=== PATIENT | female | born 1965 | race Caucasian/White ===

== ENCOUNTER → 2017-02-22 | Outpatient (CLI) | payer BC ==
[~2017-02-22] MED LIST: ESTRADIOL TD; POTA1080 PO
--- NOTE | 2017-02-22 10:48 | DIAGNOSTIC IMAGING REPORT ---
LEFT KNEE 2 VIEWS HISTORY: M25.562 Left knee [id number] COMPARISON: None. FINDINGS: There is no fracture or dislocation. Soft tissues are unremarkable. No radiopaque foreign bodies. No knee effusion. Tiny marginal osteophytes at the patella. Cartilage spaces are maintained for age. IMPRESSION: No fractures. Electronically signed by: Reagan Del Rosario M.D. 02/22/2017 10:47 AM Dictated Date/Time: 02/22/2017 10:44 AM
== END | disposition home or self-care (01) ==
LOC: C.RADBC 10:18
PROVIDERS: ATTEND Family Medicine
DX: M25.562 Pain in left knee (principal)

== ENCOUNTER → 2017-04-27 | Outpatient (CLI) | payer BC ==
--- NOTE | 2017-04-27 12:17 | MAMMOGRAPHY REPORT ---
BILATERAL DIGITAL SCREENING MAMMOGRAM TOMOSYNTHESIS WITH CAD: 04/27/2017 CLINICAL HISTORY: Routine screening examination. TECHNIQUE: Breast tomosynthesis in addition to standard 2D mammography was performed. Current study was also evaluated with a Computer Aided Detection (CAD) system. COMPARISON: Comparison is made to exams dated: 04/25/2016 mammogram, 04/22/2015 mammogram, 04/20/2014 m ammogram, 04/14/2013 mammogram, 04/11/2012 mammogram, and 01/23/2011 mammogram - [facility] ter. BREAST COMPOSITION: There are scattered areas of fibroglandular density in both breasts. FINDINGS: The parenchymal pattern is unchanged. No developing mass, architectural distortion or clus ter of suspicious microcalcifications is seen in either breast. IMPRESSION: ACR BI-RADS CATEGORY 2: BENIGN There is no mammographic evidence of malignancy. A 1 year screening mammogram is recommended. The pa tient will receive written notification of the results. Approximately 10% of breast cancers are not detected with mammography. A negative mammographic report should not delay biopsy if a clinically suggestive mass is present. Aimee Vidal M.D. ay/:04/27/2017 08:31:49 Stacker Tender: Anneliese KOWALSKI(Vincent)(M), [facility] letter sent: Normal 1/2 BI-RADS Code: ACR BI-RADS Category 2: Benign
== END | disposition home or self-care (01) ==
LOC: C.MAMM 07:35
PROVIDERS: ATTEND Obstetrics & Gynecology
DX: Z12.31 Encounter for screening mammogram for malignant neoplasm of breast (principal)

== ENCOUNTER → 2017-08-29 | Outpatient (CLI) | payer BC ==
--- NOTE | 2017-08-29 07:05 | DIAGNOSTIC IMAGING REPORT ---
ABD/PELVIS NO IV OR ORAL CONT CT DOSE: 1877.51 mGy.cm HISTORY: Flank pain N20.9 TECHNIQUE: Multiaxial CT images of the abdomen and pelvis were performed without contrast. A dose lowering technique was utilized adhering to the principles of ALARA. COMPARISON STUDY: 11/20/2015 FINDINGS: Lung bases are clear. Mild fatty infiltration of liver. Interval cholecystectomy. Kidneys are considered negative for mass or hydronephrosis. The obstructing process of the left ureter on the prior study has resolved. No significant renal calcifications currently. Bowel pattern is nonobstructive. Stable postoperative changes involving the low lumbar spine consistent with laminectomy and fusion. Survey evaluation of the osseous structures shows no acute process. IMPRESSION: 1. Operative changes consistent with a prior cholecystectomy and low lumbar laminectomy. 2. Study is otherwise negative. 3. No evidence for nephrocalcinosis or obstructing urinary tract change. The above report was generated using voice recognition software. It may contain grammatical, syntax or spelling errors. Electronically signed by: Daniele Pereira M.D. 08/29/2017 7:03 AM Dictated Date/Time: 08/29/2017 6:55 AM
== END | disposition home or self-care (01) ==
LOC: C.CTS 06:42
PROVIDERS: ATTEND Urology
DX: N20.9 Urinary calculus, unspecified (principal)

== ENCOUNTER → 2017-10-26 | Outpatient (CLI) | payer BC ==
[2017-10-26 12:42] LABS: BASO % 0.4 %; BASO ABS # 0.04 K/uL (0-0.2); COMPLETE YES; EOS ABS # 0.09 K/uL (0-0.5); HEMATOCRIT 43.2 % (37-47); IG# 0.03 K/uL (0.00-0.02); IG% 0.3 %; LYMPH % 26.9 %; LYMPH ABS # 2.45 K/uL (1.2-3.4); MEAN CELL VOLUME 90.9 fL (80-100); MEAN CORPUSCULAR HEMOGLOBIN 29.5 pg (25-34); MEAN CORPUSCULAR HGB CONC 32.4 g/dl (32-36); MEAN PLATELET VOLUME 10.2 fL (7.4-10.4); MONO % 8.1 %; MONO ABS # 0.74 K/uL (0.11-0.59); NEUT % 63.3 %; NEUT ABS # 5.76 K/uL (1.4-6.5); PLATELET COUNT 269 K/uL (130-400); RED BLOOD COUNT 4.75 M/uL (4.2-5.4); RED CELL DISTRIBUTION WIDTH CV 12.7 % (11.5-14.5); RED CELL DISTRIBUTION WIDTH SD 42.3 fL (36.4-46.3); WHITE BLOOD COUNT 9.11 K/uL (4.8-10.8)
[2017-10-26 13:19] LABS: HEMOGLOBIN A1C 6.7 % (4.5-5.6)
[2017-10-26 13:19] LABS: ESTIMATED AVERAGE GLUCOSE 146 mg/dl; HA1C FLAG Normal (Normal)
[2017-10-26 14:14] LABS: ALBUMIN 3.5 gm/dl (3.4-5.0); BLOOD UREA NITROGEN 14 mg/dl (7-18); BUN/CREATININE RATIO 17.9 (10-20); CALCIUM 9.2 mg/dl (8.5-10.1); CARBON DIOXIDE 27 mmol/L (21-32); CHLORIDE 103 mmol/L (98-107); CREATININE 0.76 mg/dl (0.60-1.20); EstGFR CKD-E AfrAm 105.3; EstGFR CKD-E NON AfrAm 90.8; POTASSIUM 4.2 mmol/L (3.5-5.1); SODIUM 136 mmol/L (136-145)
[2017-10-26 14:14] LABS: GLUCOSE 143 mg/dl (70-99)
[2017-10-26 14:25] LABS: ALB/GLOB RATIO 0.8 (0.9-2); ALKALINE PHOSPHATASE 71 U/L (45-117); ALT/SGPT 31 U/L (12-78); AST/SGOT 25 U/L (15-37); CHOLESTEROL 168 mg/dl (0-200); CHOLESTEROL/HDL RATIO 3.4; HDL CHOLESTEROL 50 mg/dl; LDL CHOLESTEROL CALCULATED 103 mg/dl; TRIGLYCERIDES 74 mg/dl (0-150); VERY LOW DENSITY LIPOPROT CALC 15 mg/dl
== END | disposition home or self-care (01) ==
LOC: C.LABPVFM 07:40
DX: G43.909 Migraine, unspecified, not intractable, without status migrainosus (principal); G47.33 Obstructive sleep apnea (adult) (pediatric); K76.0 Fatty (change of) liver, not elsewhere classified; E78.5 Hyperlipidemia, unspecified; Z68.42 Body mass index [BMI] 45.0-49.9, adult; R73.03 Prediabetes

== ENCOUNTER → 2018-05-01 | Outpatient (CLI) | payer BC ==
--- NOTE | 2018-05-02 07:56 | MAMMOGRAPHY REPORT ---
BILATERAL DIGITAL SCREENING MAMMOGRAM TOMOSYNTHESIS WITH CAD: 05/01/2018 CLINICAL HISTORY: Routine screening. Patient has no complaints. TECHNIQUE: The study was acquired using full field digital technology and interpreted from soft copy. Breast tomosynthesis in addition to standard 2D mammography was performed. Current study was also ev aluated with a Computer Aided Detection (CAD) system. COMPARISON: Comparison is made to exams dated: 04/27/2017 mammogram, 04/25/2016 mammogram, 11/25/2015 m ammogram, 04/22/2015 mammogram, 04/20/2014 mammogram, and 04/14/2013 mammogram - [facility] nter. BREAST COMPOSITION: There are scattered areas of fibroglandular density in both breasts. FINDINGS: The parenchymal pattern is unchanged. No developing mass, architectural distortion or cluster of susp icious microcalcifications is seen in either breast. IMPRESSION: ACR BI-RADS CATEGORY 2: BENIGN There is no mammographic evidence of malignancy. A 1 year screening mammogram is recommended.( 019) The patient will receive written notification of the results. Some breast cancers are not detected with mammography. A negative mammographic report should not bailee y biopsy if a clinically suggestive mass is present. Aimee Vidal M.D. ay/:05/01/2018 09:06:57 Nail Tech: RT Andrews(Vincent)(M), [facility] letter sent: Normal 1/2 BI-RADS Code: ACR BI-RADS Category 2: Benign
== END | disposition home or self-care (01) ==
LOC: C.MAMM 07:58
PROVIDERS: ATTEND Obstetrics & Gynecology
DX: Z12.31 Encounter for screening mammogram for malignant neoplasm of breast (principal)

== ENCOUNTER 2024-10-30 18:57 | Observation (INO) ==
--- NOTE | 2024-10-30 19:13 | Emergency Department Note ---
ED Visit Note This patient was briefly evaluated while in triage. An abbreviated physical exam was performed. This patient is a 59-year-old female who presents to the ED for right lower quadrant pain. Patient states that she has a history of kidney stones and this feels similar. CONSTITUTIONAL: Healthy and well nourished. Alert and oriented X 3. HEENT: Normocephalic, atraumatic. Pupils equal, round and reactive. RESPIRATORY: Clear to auscultation bilaterally with no wheezing, crackles, rhonchi or stridor. CARDIOVASCULAR: Regular rate and rhythm with no murmurs, rubs or gallops. GASTROINTESTINAL: Bowel sounds present in all quadrants. MUSCULOSKELETAL: Full range of motion of all joints without discomfort. Ambulated into triage with steady and upright gait. PSYCHIATRIC: Positive affect. Initial orders for labs and / or imaging were placed and patient was placed in the waiting area until a bed is available. Please see further documentation for the full ED course. .
[2024-10-30] MEDS: ONDANSETRON INJ 2 MG/ML 2 ML VIAL IV STA ×2 (19:29→20:40)
[2024-10-30] MEDS: KETOROLAC TROMETHAMINE 15 MG/ML VIAL IV STA (19:29)
[2024-10-30 20:00] LABS: Hematocrit (blood only) 40.1 % (37.0-47.0); Hemoglobin 13.3 g/dl (12.0-16.0); Mean Corpuscular Hemoglobin 28.4 pg (25.0-34.0); Mean Corpuscular Hgb Conc 33.2 g/dL (32.0-36.0); Mean Corpuscular Volume 85.5 fL (80.0-100.0); Mean Platelet Volume 9.1 fL (9.4-12.4); Platelet Count 456 K/uL (130-400); RDW Standard Deviation 37.1 fL (36.4-46.3); Red Blood Count 4.69 M/uL (4.20-5.40); White Blood Count 12.66 K/ul (4.8-10.8)
[2024-10-30 20:18] LABS: Basophils # (auto) 0.08 K/uL (0.00-0.20); Basophils % (auto) 0.6 %; Eosinophils # (auto) 0.06 K/uL (0.00-0.50); Eosinophils % (auto) 0.5 %; Immature Granulocytes # (auto) 0.06 K/uL (0.01-0.20); Immature Granulocytes % (auto) 0.5 %; Lymphocytes % (auto) 50.6 %; Monocytes # (auto) 0.71 K/uL (0.11-0.59); Monocytes % (auto) 5.6 %; Neutrophils # (auto) 5.35 K/uL (1.40-6.50); Neutrophils % (auto) 42.2 %
[2024-10-30 20:20] LABS: BUN Creatinine Ratio 16.7 (10-20); Bilirubin,Total 0.4 mg/dl (0.2-1.0); Creatinine Clr Calc Pharmacy 87.2 ml/min; Potassium 3.6 mmol/L (3.5-5.1)
[2024-10-30] MEDS: MoRPHine SULFATE 4 MG/ML 1 ML CARP\\VIAL IV STA (20:31)
[2024-10-30 20:32] LABS: Appearance Urine Cloudy (Clear); Bacteria Urine Automated None Seen (None Seen); Bilirubin Urine Negative (Negative); Blood Urine 3+ (Negative); Cast Urine Automated 0-2 /lpf (0-2); Color Urine Yellow; Glucose Urine UA Negative (Negative); Ketones Urine Negative (Negative); Leukocyte Esterase Urine 1+ (Negative); Nitrite Urine Negative (Negative); Protein Urine 1+ (Negative); RBC Urine Automated >20 /hpf (0-2); Specific Gravity Urine 1.022 (1.000-1.030); Urobilinogen Urine Negative (Negative)
--- NOTE | 2024-10-30 20:40 | Emergency Department Note ---
ED Provider Note History of Present Illness Chief Complaint: Kidney Stone Stated Complaint: KIDNEY STONE Time Seen by Provider: 10/30/24 19:40 Source: patient Mode of arrival: ambulatory Limitations: no limitations Patient is a 59-year-old female who presents to the ED for right lower quadrant pain. Patient notes that the pain is severe and also notes some associated nausea. Patient states that she has a history of kidney stones and this feels similar. Home Medications Medication Instructions Recorded Confirmed Type lancets 33 gauge (OneTouch Delica #100 ea 08/03/22 10/30/24 Rx Lancets) OneTouch Verio Reflect Meter #1 ea 03/15/23 10/30/24 Rx (blood-glucose meter) Ozempic 2 mg/dose (8 mg/3 mL) 2 mg (0.75 mL) subcut Q7D #3 mL 03/20/24 10/30/24 Rx subcutaneous pen injector (semaglutide) OneTouch Verio test strips (blood #100 ea 06/18/24 10/30/24 Rx sugar diagnostic) lancets 33 gauge (OneTouch Delica #100 ea 06/18/24 10/30/24 Rx Plus Lancet) topiramate 25 mg tablet 25 mg PO HS #90 tabs 06/18/24 10/30/24 Rx amoxicillin 875 mg-potassium 1 tab PO BID 10 days #20 tabs 10/27/24 10/30/24 Rx clavulanate 125 mg tablet rosuvastatin 5 mg tablet (Crestor) 5 mg PO 4XWK 10/27/24 10/30/24 History Allergies Allergy/AdvReac Type Severity Reaction Status Date / Time codeine Allergy Unknown ITCHING Verified 10/27/24 11:33 [id number] Antimigraine AdvReac Unknown Major Verified 10/27/24 11:33 Agents panic attack Past Med/Surg History Problem List (Updated 10/31/24 @ 01:06 by LAN Knott) FH: colon cancer Hydronephrosis with obstructing calculus (Acute) Vitamin D deficiency Obesity (BMI 30-39.9) Sleep apnea CPAP Impingement syndrome, shoulder, left Uric acid urolithiasis (Chronic) Type 2 diabetes mellitus (Chronic) Multiple nevi (Chronic) Hepatic steatosis (Chronic) Headache, migraine (Chronic) Dyslipidemia (Chronic) Borderline high blood pressure (Chronic) Medical History Family history of premature CAD Peripheral edema Slow to wake up after anesthesia Obesity, morbid, BMI 40.0-49.9 BMI has decreased below 40 History of kidney stones Surgical History S/P left rotator cuff repair S/P left rotator cuff repair History of lumbar fusion (10/1999) L4-5, [facility] History of colonoscopy History of cholecystectomy History of hysterectomy History of tubal ligation Family History Mother Diabetes Hypertension Cardiac disorder Myocardial infarction Father Diabetes Hypertension Cardiac disorder Myocardial infarction Son Kidney stones Other Heart disease Kidney disease Denies family history of Ovarian cancer Prostate cancer Breast cancer Lung cancer Colorectal cancer Stroke Social History Smoking Status: Never smoker Tobacco Type: Cigarettes Age Started Using Tobacco: 16; Age Quit Using Tobacco: 34; packs per day: 1.5; Cigarettes Per Day: 30; Second Hand Exposure: No; Do You Dip or Chew Tobacco: No; Hx Alcohol Use: Yes Alcohol type: wine Alcohol Intake Frequency: 2-4 x/Month Hx Substance Use: No Preferred Language: Turkmen Communication Ability: Effective Visual Impairment: Limited Hearing Ability: Normal Bump Grader Operator Required: No Beliefs That Will Affect Care: None marital status: Current Living Situation: Spouse and Family Current Living Situation Comment: DAUGHTER AND GRANDAUGHTER current occupational status: employed current occupation: [employer] How many Children do You have: 3 Feels Safe at Home: Yes Childhood Exposure to Second-Hand Smoke: No Diet: regular caffeine: No Dental Care, Regularly: No Physical Activity Frequency: 1-2 Times per Week Seatbelt Use: always Sunscreen Use: Yes Assistive Devices: CPAP, Denture - Upper, Denture - Lower and Glasses Physical Exam Vital Signs Vital Signs - 24 hr 10/30/24 19:12 10/30/24 20:36 10/30/24 20:38 Temperature 36.1 C L Temperature Source Temporal Artery Scan Pulse Rate 79 82 Pulse Rate [Apical] 71 Respiratory Rate 20 18 Respiratory Effort / Characteristics Non-Labored Spontaneous Respiratory Depth Normal Blood Pressure 154/102 H Blood Pressure [Left Arm] 117/80 Blood Pressure Mean 119 Blood Pressure Mean [Left Arm] 92 Blood Pressure Position [Left Arm] Sitting Pulse Oximetry 96 95 Oxygen Delivery Method Room Air Room Air Sepsis Recent Fever Within 48 Hours No Sepsis New/Unexplained Change in Mental Status N/A Sepsis Action Taken by Nursing No Action Required 10/30/24 22:17 10/30/24 23:18 10/31/24 00:40 Temperature Temperature Source Pulse Rate 64 73 Pulse Rate [Apical] 70 Respiratory Rate 18 Respiratory Effort / Characteristics Respiratory Depth Blood Pressure 156/82 H Blood Pressure [Left Arm] 117/78 Blood Pressure Mean 108 Blood Pressure Mean [Left Arm] 91 Blood Pressure Position [Left Arm] Lying Pulse Oximetry 95 97 Oxygen Delivery Method Room Air Room Air Sepsis Recent Fever Within 48 Hours Sepsis New/Unexplained Change in Mental Status Sepsis Action Taken by Nursing VITAL SIGNS - Vital signs and nursing notes were reviewed. GENERAL -59-year-old female appearing her stated age who is in no acute distress. Communicates well with provider and answers questions appropriately. is at bedside. HEAD - NC/AT. LUNGS - Chest wall symmetric without accessory muscle use, intercostals retractions, or central cyanosis. Breath sounds clear throughout all wiley. No wheezes, rales, or rhonchi appreciated. CARDIAC - RRR with S1/S2. No murmur, rubs, or gallops appreciated. ABDOMEN - Abdominal contour without pulsations or visible masses. Negative [place]'s or [place] Bright's Signs. BS normoactive all four quadrants. Increased tenderness to palpation appreciated in right lower quadrant. No guarding. No rebound Tenderness. No palpable masses, hepatosplenomegaly, or ascites noted. NEUROLOGIC - Sensory intact to light touch throughout. PSYCH - A&Ox3 and cooperates fully with examiner. Pt is very pleasant and interacts well with examiner. Course Administered Medications Discontinued Medications Fentanyl Citrate (Fentanyl Citrate Pf 100 Mcg/2 Ml Vial) 50 mcg IV NOW STA Stop: 10/30/24 22:02 Last Admin: 10/30/24 22:16 Dose: 50 mcg Documented By: QGV Hydromorphone HCl (Hydromorphone Inj 0.5 Mg/0.5 Ml Syr) 0.5 mg IV NOW STA Stop: 10/31/24 00:07 Last Admin: 10/31/24 00:16 Dose: 0.5 mg Documented By: Ketorolac Tromethamine (Ketorolac Tromethamine 15 Mg/Ml Vial) 15 mg IV NOW STA Stop: 10/30/24 19:14 Last Admin: 10/30/24 19:29 Dose: 15 mg Documented By: KMSamantha Morphine Sulfate (Morphine Sulfate 4 Mg/Ml 1 Ml Carp\Vial) 4 mg IV NOW STA Stop: 10/30/24 20:22 Last Admin: 10/30/24 20:31 Dose: 4 mg Documented By: QGV Ondansetron HCl (Ondansetron Inj 2 Mg/Ml 2 Ml Vial) 4 mg IV NOW STA Stop: 10/30/24 19:14 Last Admin: 10/30/24 19:29 Dose: 4 mg Documented By: KML Ondansetron HCl (Ondansetron Inj 2 Mg/Ml 2 Ml Vial) 4 mg IV NOW STA Stop: 10/30/24 20:37 Last Admin: 10/30/24 20:40 Dose: 4 mg Documented By: QGV Medical Decision Making Differential Diagnosis Gastritis, gastroenteritis, small bowel obstruction, appendicitis, diverticulitis, kidney stone, pyelonephritis, among others Medical Records Attestation: I reviewed the patient's medical records. Home Medications was personally reviewed by me Laboratory Data Attestation: I reviewed the patient's lab results. 10/30/24 19:27 10/30/24 19:27 Lab Results 10/30/24 10/30/24 Range/Units 19:27 19:30 WBC 12.66 H (4.8-10.8) K/ul RBC 4.69 (4.20-5.40) M/uL Hgb 13.3 (12.0-16.0) g/dl Hct 40.1 (37.0-47.0) % MCV 85.5 (80.0-100.0) fL MCH 28.4 (25.0-34.0) pg MCHC 33.2 (32.0-36.0) g/dL RDW Std Deviation 37.1 (36.4-46.3) fL RDW Coeff of Nate 12.0 (11.5-14.5) % Plt Count 456 H (130-400) K/uL MPV 9.1 L (9.4-12.4) fL Immature Gran % (Auto) 0.5 % Neut % (Auto) 42.2 % Lymph % (Auto) 50.6 % [place] % (Auto) 5.6 % Eos % (Auto) 0.5 % Baso % (Auto) 0.6 % Neut # (Auto) 5.35 (1.40-6.50) K/uL Lymph # (Auto) 6.40 H (1.20-3.40) K/uL [place] # (Auto) 0.71 H (0.11-0.59) K/uL Eos # (Auto) 0.06 (0.00-0.50) K/uL Baso # (Auto) 0.08 (0.00-0.20) K/uL Immature Gran # (Auto) 0.06 (0.01-0.20) K/uL Sodium 136 (136-145) mmol/L Potassium 3.6 (3.5-5.1) mmol/L Chloride 102 (98-107) mmol/L Carbon Dioxide 25 (21-32) mmol/L Anion Gap 9 (3-11) BUN 13 (6-23) mg/dl Creatinine 0.78 (0.6-1.2) mg/dl Est Cr Clr Drug Dosing 87.2 ml/min eGFR 87.99 BUN/Creatinine Ratio 16.7 (10-20) Glucose 133 H (70-99(Fasting)) mg/dl Calcium 10.0 (8.6-10.3) mg/dl Total Bilirubin 0.4 (0.2-1.0) mg/dl AST 17 (13-39) U/L ALT 14 (7-52) U/L Alkaline Phosphatase 59 (34-104) U/L Total Protein 8.0 (6.0-8.3) gm/dl Albumin 4.0 (3.4-5.0) gm/dl Globulin 4.0 (2.5-4.0) gm/dl Albumin/Globulin Ratio 1.0 (0.9-2) Lipase 82 (11-82) U/L Urine Color Yellow Urine Appearance Cloudy A (Clear) Urine pH 6.0 (4.5-7.5) Ur Specific [place] 1.022 (1.000-1.030) Urine Protein 1+ H (Negative) Urine Glucose (UA) Negative (Negative) Urine Ketones Negative (Negative) Urine Blood 3+ H (Negative) Urine Nitrite Negative (Negative) Urine Bilirubin Negative (Negative) Urine Urobilinogen Negative (Negative) Ur Leukocyte Esterase 1+ H (Negative) Urine WBC (Auto) 11-20 H (0-5) /hpf Urine RBC (Auto) >20 H (0-2) /hpf U Hyaline Cast (Auto) 0-2 (0-2) /lpf U Epithel Cells (Auto) 11-20 H (0-2) /hpf Urine Bacteria (Auto) None Seen (None Seen) Imaging Data Radiologist's Impression: Abdomen/Pelvis CT 10/30/24 19:13 Exam(s): CT ABDOMEN + PELVIS Without Contrast EXAM: CT Abdomen and Pelvis Without Intravenous Contrast CLINICAL HISTORY: Reason for exam: r/o kidney stone. TECHNIQUE: Axial computed tomography images of the abdomen and pelvis without intravenous contrast. CTDI is 27.35 mGy and DLP is 1423.95 mGy-cm. Automated exposure control was utilized for the study. A dose lowering technique was utilized adhering to the principles of ALARA. COMPARISON: 03/21/2024 FINDINGS: Lung bases: Unremarkable. No mass. No consolidation. ABDOMEN: Liver: Unremarkable. Gallbladder and bile ducts: Postoperative changes prior cholecystectomy. No ductal dilation. Pancreas: Unremarkable. No ductal dilation. Spleen: Unremarkable. No splenomegaly. Adrenals: Unremarkable. No mass. Kidneys and ureters: Moderate sized right hydronephrosis secondary to a 0.4 cm distal right renal calculus nonobstructing right intrarenal calculi. No left-sided hydronephrosis. No left renal or ureteral calculi. Stomach and bowel: Unremarkable. No obstruction. No mucosal thickening. PELVIS: Appendix: No findings to suggest acute appendicitis. Bladder: Unremarkable. No stones. Reproductive: Uterus are surgically absent. ABDOMEN and PELVIS: Intraperitoneal space: Unremarkable. No free air. No significant fluid collection. Bones/joints: Postoperative changes L4 through West 1 interbody fusion. Orthopedic hardware appears intact and well aligned. No acute fracture. Soft tissues: Unremarkable. Vasculature: Unremarkable. No abdominal aortic aneurysm. Lymph nodes: Unremarkable. No enlarged lymph nodes. IMPRESSION: Moderate sized right hydronephrosis secondary to a 0.4 cm distal right ureteral calculus. Electronically signed by: Campos Barrera MD 10/30/24 23:19 PM MDM Narrative Patient is a 59-year-old female who presents to the ED for right lower quadrant pain. Patient notes that the pain is severe and also notes some associated nausea. Patient states that she has a history of kidney stones and this feels similar. Patient was evaluated by myself and findings were noted in physical exam above. Patient was ordered IV placement, lab work, urinalysis, and CT of the abdomen pelvis. Patient's lab work resulted with an elevated white blood cell count of 12.66. Otherwise the patient's lab work was unremarkable. Patient was given initial dose of Zofran and Toradol for her discomfort. Upon reevaluation the patient states that she still having significant pain. Patient was ordered another dose of Zofran for persistent nausea and a dose of morphine for her pain. Patient's urinalysis resulted and was indicative of infection. Upon reevaluation the patient notes that she was still having a significant amount of pain and was at this time ordered a dose of fentanyl for her discomfort as she felt the morphine did not help a whole lot. Patient CT resulted and noted a moderate size right hydronephrosis secondary to a 4 mm distal right ureteral calculus. I discussed the CT findings with the patient who verbalized understanding. I informed the patient that because she has a kidney stone as well as a urinary infection and an elevated white blood cell count that it would be recommended that she stay in the hospital as an inpatient to further evaluate and manage her symptoms and that she would likely have a urology consult while admitted. Patient verbalized understanding and was agreeable to that plan. Patient states that she has had to have lithotripsy and other urology procedures in the past and felt better about staying in the hospital versus being discharged due to her history and pain as well. I spoke with Dr. Monte with [facility] hospitalist group about this patient. I gave her a report on the patient's chief complaints, current status and the results of her lab work and imaging. Dr. Monte agreed and accepted the patient under her service. Please refer to [facility] group's documentation for further evaluation and management of this patient. Impression Hydronephrosis with obstructing calculus Discharge Plan Visit Data Chief Complaint: Kidney Stone Stated Complaint: KIDNEY STONE ED Provider: Miki Vieira ED Midlevel Provider: Luann Dinh Discharge Problem: Hydronephrosis with obstructing calculus Patient Disposition: Admitted As Inpatient Forms Stand Alone Forms: My [facility] Prescriptions Prescriptions: No Action (DME) lancets [OneTouch Delica Lancets] 33 gauge misc See Rx Instructions .Route Qty: 100 3RF Rx Instructions: Test once daily Ozempic 2 mg/dose (8 mg/3 mL) pen injector 2 mg subcut Q7D Qty: 3 12RF Rx Instructions: Sunday (DME) blood-glucose meter [OneTouch Verio Reflect Meter] [facility] [place] Instructions .Route Qty: 1 0RF Rx Instructions: Check Blood Glucose once daily topiramate 25 mg tablet 25 mg PO HS Qty: 90 3RF (DME) OneTouch Verio test strips Strip See Rx Instructions .Route Qty: 100 3RF Rx Instructions: Check blood glucose once daily (DME) lancets [OneTouch Delica Plus Lancet] 33 gauge misc See Rx Instructions .ROUTE .MEDSUPPLY Qty: 100 3RF Rx Instructions: Check blood sugar once daily rosuvastatin [Crestor] 5 mg tablet 5 mg PO 4XWK Rx Instructions: take 1 tablet 4 times per week. MON/WED/FRI/SAT amoxicillin-pot clavulanate 875-125 mg tablet 1 tab PO BID 10 Days Qty: 20 0RF Referrals Referrals: Lexi Irby DO [Primary Care Provider] -
[2024-10-30] MEDS: fentaNYL citrate PF 100 MCG/2 ML VIAL IV STA (22:16)
--- NOTE | 2024-10-30 23:20 | CT Scan Report ---
Exam(s): CT ABDOMEN + PELVIS Without Contrast EXAM: CT Abdomen and Pelvis Without Intravenous Contrast CLINICAL HISTORY: Reason for exam: r/o kidney stone. TECHNIQUE: Axial computed tomography images of the abdomen and pelvis without intravenous contrast. CTDI is 27.35 mGy and DLP is 1423.95 mGy-cm. Automated exposure control was utilized for the study. A dose lowering technique was utilized adhering to the principles of ALARA. COMPARISON: 03/21/2024 FINDINGS: Lung bases: Unremarkable. No mass. No consolidation. ABDOMEN: Liver: Unremarkable. Gallbladder and bile ducts: Postoperative changes prior cholecystectomy. No ductal dilation. Pancreas: Unremarkable. No ductal dilation. Spleen: Unremarkable. No splenomegaly. Adrenals: Unremarkable. No mass. Kidneys and ureters: Moderate sized right hydronephrosis secondary to a 0.4 cm distal right renal calculus nonobstructing right intrarenal calculi. No left-sided hydronephrosis. No left renal or ureteral calculi. Stomach and bowel: Unremarkable. No obstruction. No mucosal thickening. PELVIS: Appendix: No findings to suggest acute appendicitis. Bladder: Unremarkable. No stones. Reproductive: Uterus are surgically absent. ABDOMEN and PELVIS: Intraperitoneal space: Unremarkable. No free air. No significant fluid collection. Bones/joints: Postoperative changes L4 through West 1 interbody fusion. Orthopedic hardware appears intact and well aligned. No acute fracture. Soft tissues: Unremarkable. Vasculature: Unremarkable. No abdominal aortic aneurysm. Lymph nodes: Unremarkable. No enlarged lymph nodes. IMPRESSION: Moderate sized right hydronephrosis secondary to a 0.4 cm distal right ureteral calculus. Electronically signed by: Campos Barrera MD 10/30/24 23:19 PM
[2024-10-31] MEDS: HYDROmorphone INJ 0.5 MG/0.5 ML SYR IV STA (00:16)
--- NOTE | 2024-10-31 00:45 | Urology Consultation ---
Date of Consultation October 31, 2024 Assessment & Plan (1) Hydronephrosis with obstructing calculus: The patient is being admitted on the hospitalist service from urologic perspective we recommend the following: Provide analgesics Provide antiemetics as needed Provide gentle hydration with intravenous fluids Follow serial labs Initiate Flomax for expulsive therapy There is concern the patient may have a urinary tract infection and the hospitalist are planning on initiating antibiotics. Appropriate culture has been sent and antibiotics be tailored based on his results I discussed with the hospitalist that the patient should be made n.p.o. at the present time. She will be reevaluated in the morning to see if the stone is passed and if it still giving her a great deal of trouble cystoscopic intervention may be required she did require this in the past At the present time the patient is nontoxic-appearing. She is normotensive without tachycardia or fever and does not exhibit acute kidney injury. I therefore think a trial of conservative passage is warranted at this time Additional recommendations with forthcoming based on clinical course as unfolds History of Present Illness Reason for Consultation: Nephrolithiasis History of Present Illness This is a 51-year-old female who presented the emergency department secondary to right-sided abdominal pain that began last evening. She states she really did not have much in the way of right flank pain but the pain was in the lower part of her abdomen on the right side. In addition the patient reports urinary frequency and feels as though she cannot do her bladder completely. She denies any dysuria. She did note some slight blood-tinged urine at times. She denies any fevers, shakes, or chills. She denies any nausea or vomiting. Patient did report that she does have a history of kidney stones and most recently required intervention in March 2024. At this time she underwent a basket extraction of the stone via cystoscopy and insertion of a right ureteral stent by Dr. Barlow of [facility] urology. Since arrival to the hospital this evening she has had labs and imaging which independent reviewed. A CT scan abdomen pelvis showed the patient had moderate right-sided hydronephrosis secondary to a 4 mm distal right kidney stone. Labs include a CBC were white blood cell count was elevated 12.6. Hemoglobin and hematocrit were normal. Platelet count was 456,000. Chemistry profile showed sodium and potassium as well as the BUN and creatinine were normal. Urinalysis showed cloudy urine which was negative for nitrites but had 1+ leukocyte Estrace and 11-12 white blood cells per high-power field. There is no bacteria on the study. At the time of my interview she was resting comfortably bed she was no distress. Allergies Allergy/AdvReac Type Severity Reaction Status Date / Time codeine Allergy Unknown ITCHING Verified 10/27/24 11:33 [id number] Antimigraine AdvReac Unknown Major Verified 10/27/24 11:33 Agents panic attack Home Medications Medication Instructions Recorded Confirmed Type lancets 33 gauge (OneTouch Delica #100 ea 08/03/22 10/30/24 Rx Lancets) OneTouch Verio Reflect Meter #1 ea 03/15/23 10/30/24 Rx (blood-glucose meter) Ozempic 2 mg/dose (8 mg/3 mL) 2 mg (0.75 mL) subcut Q7D #3 mL 03/20/24 10/30/24 Rx subcutaneous pen injector (semaglutide) OneTouch Verio test strips (blood #100 ea 06/18/24 10/30/24 Rx sugar diagnostic) lancets 33 gauge (OneTouch Delica #100 ea 06/18/24 10/30/24 Rx Plus Lancet) topiramate 25 mg tablet 25 mg PO HS #90 tabs 06/18/24 10/30/24 Rx amoxicillin 875 mg-potassium 1 tab PO BID 10 days #20 tabs 10/27/24 10/30/24 Rx clavulanate 125 mg tablet rosuvastatin 5 mg tablet (Crestor) 5 mg PO 4XWK 10/27/24 10/30/24 History Patient History Medical History Family history of premature CAD Peripheral edema Slow to wake up after anesthesia Obesity, morbid, BMI 40.0-49.9 BMI has decreased below 40 History of kidney stones Surgical History S/P left rotator cuff repair S/P left rotator cuff repair History of lumbar fusion (10/1999) [place] [facility] [place] of colonoscopy History of cholecystectomy History of hysterectomy History of tubal ligation Family History Mother Diabetes Hypertension Cardiac disorder Myocardial infarction Father Diabetes Hypertension Cardiac disorder Myocardial infarction Son Kidney stones Other Heart disease Kidney disease Denies family history of Ovarian cancer Prostate cancer Breast cancer Lung cancer Colorectal cancer Stroke Social History Smoking Status: Never smoker Tobacco Type: Cigarettes Age Started Using Tobacco: 16; Age Quit Using Tobacco: 34; packs per day: 1.5; Cigarettes Per Day: 30; Second Hand Exposure: No; Do You Dip or Chew Tobacco: No; Hx Alcohol Use: Yes Alcohol type: wine Alcohol Intake Frequency: 2-4 x/Month Hx Substance Use: No Preferred Language: Icelandic Communication Ability: Effective Visual Impairment: Limited Hearing Ability: Normal Dewaxer Required: No Beliefs That Will Affect Care: None marital status: Current Living Situation: Spouse and Family Current Living Situation Comment: DAUGHTER AND GRANDAUGHTER current occupational status: employed current occupation: [employer] How many Children do You have: 3 Feels Safe at Home: Yes Childhood Exposure to Second-Hand Smoke: No Diet: regular caffeine: No Dental Care, Regularly: No Physical Activity Frequency: 1-2 Times per Week Seatbelt Use: always Sunscreen Use: Yes Assistive Devices: CPAP, Denture - Upper, Denture - Lower and Glasses Review of Systems Review of Systems: All systems reviewed & are unremarkable except as noted in HPI & below Physical Exam Constitutional: WD/WN, vitals as above Eyes: Wears glasses ENMT: Ears: no hearing impairment and no external ear abnormality Mouth: no oropharynx abnormality Neck: trachea midline Respiratory: normal respiratory effort; no respiratory distress and no labored breathing Cardiovascular: Rate/Rhythm: regular rate and regular rhythm Gastrointestinal (Abdomen): Abdomen is soft and nonrigid. It is nondistended and nontender to palpation Musculoskeletal: No calf tenderness Skin: no rashes Neurologic: moves all extremities Psychiatric: A+Ox3, euthymic affect Genitourinary: Slight/minimal CVA tenderness with percussion on the right. No CVA tenderness with percussion on the left Results & Data Vital Signs (Past 12 Hours) Vital Signs Temp Pulse Pulse Resp BP BP Pulse Ox 10/30/24 23:18 70 117/78 97 10/30/24 22:17 64 18 156/82 H 95 10/30/24 20:38 71 18 117/80 95 10/30/24 20:36 82 10/30/24 19:12 36.1 C L 79 20 154/102 H 96 O2 Del Method 10/30/24 23:18 Room Air 10/30/24 22:17 Room Air 10/30/24 20:38 Room Air 10/30/24 20:36 10/30/24 19:12 Room Air PG Care Time/CCT Total # of Minutes Spent Total Time Spent with Patient: Total time spent is greater than 50% in coordination of care (as documented) at patient's floor/unit and/or counseling patient: Coding Level of Care Code 66322 IN/OBS CONSULT LVL 5,80M Diagnoses Hydronephrosis with obstructing calculus N13.2
--- NOTE | 2024-10-31 00:53 | History & Physical Report ---
Date of Service October 31, 2024 Assessment & Plan (1) Hydronephrosis with obstructing calculus: Plan: 59-year-old female with history of hypertension, hyperlipidemia and prior obstructing renal calculi presenting with right-sided ureteral stone with hydronephrosis. 0.4 cm, distal right ureter. Patient with pain improved with IV Dilaudid in the ER. Nausea has improved as well. No bacteria present on day. Patient has been on Augmentin 875 twice daily since 10/27/2024 for a sinus infection. Admit to medical Keep n.p.o. Strain urine Dilaudid as needed for pain for nausea Toradol as needed for pain Zofran as needed Will continue patient's Augmentin 875 mg p.o. twice daily for treatment of her sinus infection. This was prescribed for a 10-day course and was started on 10/27/2024. Per prior cultures, she has grown pansensitive E. coli in the past which should be covered by this Augmentin and of infectionPlan continue Flomax urology consultation appreciated (2) Sleep apnea: Plan: Patient is compliant with her home CPAP. However, over the last several weeks she has had a considerable amount of nasal congestion and has found it difficult to wear her CPAP Supplemental oxygen as needed (3) Type 2 diabetes mellitus: Plan: patient is on Ozempic. Diabetes well-controlled. Last hemoglobin A1c in August = 5.5 Daily blood sugar with a.m. labs (4) Dyslipidemia: Plan: chronic. Stable. Continue Crestor 5 mg p.o. 4 times weekly History of Present Illness Chief Complaint: right flank pain Primary Care Provider: DO Yanna Vizcarra Akash is a 59yo female with history of MICHELL, DM, HTN and HLP, History of renal stones requiring urologic presenting from home with right flank pain. patient in usual state of health until this evening around 1730 when she developed right lower quadrant abdominal pain. She had slight discoloration of her urine. Symptoms similar to when she had a renal stone in the past. Patient does have ongoing pain as well as nausea. Denies fever, chills, dysuria, vomiting, chest pain, cough, shortness of breath. Took Flomax at 1815 prior to arrival to the ER. Has not passed any stones. In the ER she is afebrile, hemodynamically stable. Ongoing pain improved with IV Dilaudid ER course: Fentanyl Dilaudid Toradol Zofran Allergies Allergy/AdvReac Type Severity Reaction Status Date / Time codeine Allergy Unknown ITCHING Verified 10/27/24 11:33 [id number] Antimigraine AdvReac Unknown Major Verified 10/27/24 11:33 Agents panic attack Home Medications Medication Instructions Recorded Confirmed Type lancets 33 gauge (OneTouch Delica #100 ea 08/03/22 10/30/24 Rx Lancets) OneTouch Verio Reflect Meter #1 ea 03/15/23 10/30/24 Rx (blood-glucose meter) Ozempic 2 mg/dose (8 mg/3 mL) 2 mg (0.75 mL) subcut Q7D #3 mL 03/20/24 10/30/24 Rx subcutaneous pen injector (semaglutide) OneTouch Verio test strips (blood #100 ea 06/18/24 10/30/24 Rx sugar diagnostic) lancets 33 gauge (OneTouch Delica #100 ea 06/18/24 10/30/24 Rx Plus Lancet) topiramate 25 mg tablet 25 mg PO HS #90 tabs 06/18/24 10/30/24 Rx amoxicillin 875 mg-potassium 1 tab PO BID 10 days #20 tabs 10/27/24 10/30/24 Rx clavulanate 125 mg tablet rosuvastatin 5 mg tablet (Crestor) 5 mg PO 4XWK 10/27/24 10/30/24 History Past Med/Surg History Problem List FH: colon cancer Hydronephrosis with obstructing calculus (Acute) Vitamin D deficiency Obesity (BMI 30-39.9) Sleep apnea CPAP Impingement syndrome, shoulder, left Uric acid urolithiasis (Chronic) Type 2 diabetes mellitus (Chronic) Multiple nevi (Chronic) Hepatic steatosis (Chronic) Headache, migraine (Chronic) Dyslipidemia (Chronic) Borderline high blood pressure (Chronic) Medical History Family history of premature CAD Peripheral edema Slow to wake up after anesthesia Obesity, morbid, BMI 40.0-49.9 BMI has decreased below 40 History of kidney stones Surgical History S/P left rotator cuff repair S/P left rotator cuff repair History of lumbar fusion (10/1999) L4-5, [facility] [place] History of colonoscopy History of cholecystectomy History of hysterectomy History of tubal ligation Family History Mother Diabetes Hypertension Cardiac disorder Myocardial infarction Father Diabetes Hypertension Cardiac disorder Myocardial infarction Son Kidney stones Other Heart disease Kidney disease Denies family history of Ovarian cancer Prostate cancer Breast cancer Lung cancer Colorectal cancer Stroke Social History Smoking Status: Former smoker Tobacco Type: Cigarettes Age Started Using Tobacco: 16; Age Quit Using Tobacco: 34; packs per day: 1.5; Cigarettes Per Day: 30; Second Hand Exposure: No; Do You Dip or Chew Tobacco: No; Hx Alcohol Use: Yes Alcohol type: wine Alcohol Intake Frequency: 2-4 x/Month Hx Substance Use: No Preferred Language: Bahamian Communication Ability: Effective Visual Impairment: Limited Hearing Ability: Normal 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 Required: No Beliefs That Will Affect Care: None marital status: Current Living Situation: Spouse Current Living Situation Comment: DAUGHTER AND GRANDAUGHTER current occupational status: employed current occupation: [employer] How many Children do You have: 3 Other Information That Helps Us Care for You: No Feels Safe at Home: Yes Safety Concerns: Feels Safe At This Time Childhood Exposure to Second-Hand Smoke: No Diet: regular caffeine: No Dental Care, Regularly: No Physical Activity Frequency: 1-2 Times per Week Seatbelt Use: always Sunscreen Use: Yes Assistive Devices: Denture - Upper, Denture - Lower and Glasses Review of Systems Review of Systems: All systems reviewed & are unremarkable except as noted in HPI & below Physical Exam Physical Exam: General: patient resting comfortably, NAD, non-toxic in appearance, AA&O x 4 Skin: warm, dry, intact, no rashes or lesions HEENT: NC/AT, PERRL, EOMI, anicteric sclera, conjunctiva without injection, external ear normal to inspection and nontender, nares patent, moist mucus membr anes, dentition intact, no oropharyngeal lesions, neck supple, trachea midline, no LAD, no thyromegaly, no JVD Heart: +S1/S2, regular, no m/r/g Lungs: equal air entry bilaterally, no rales/rhonchi/wheezes Abd: +BS, soft, tenderness in RLQ with no rebound/guarding/peritonitis, no masses/organomegaly/ascites Ext: warm, 2+ pulses in UE/LE bilaterally, no clubbing/cyanosis or edema Neuro: nonfocal, patient AA&O x 4, speech intact, no facial droop, moving all extremities on command with equal strength 5/5 Results & Data Results & Data Vital Signs (Past 12 Hours) Vital Signs Temp Pulse Pulse Resp BP BP Pulse Ox 10/31/24 00:40 73 10/30/24 23:18 70 117/78 97 10/30/24 22:17 64 18 156/82 H 95 10/30/24 20:38 71 18 117/80 95 10/30/24 20:36 82 10/30/24 19:12 36.1 C L 79 20 154/102 H 96 O2 Del Method 10/31/24 00:40 10/30/24 23:18 Room Air 10/30/24 22:17 Room Air 10/30/24 20:38 Room Air 10/30/24 20:36 10/30/24 19:12 Room Air Laboratory Results Laboratory Results WBC 12.66 K/ul (4.8-10.8) H 10/30/24 19:27 RBC 4.69 M/uL (4.20-5.40) 10/30/24 19:27 Hgb 13.3 g/dl (12.0-16.0) 10/30/24 19:27 Hct 40.1 % (37.0-47.0) 10/30/24 19:27 MCV 85.5 fL (80.0-100.0) 10/30/24 19:27 MCH 28.4 pg (25.0-34.0) 10/30/24 19: MCHC 33.2 g/dL (32.0-36.0) 10/30/24 19:27 RDW Std Deviation 37.1 fL (36.4-46.3) 10/30/24 19:27 RDW Coeff of Nate 12.0 % (11.5-14.5) 10/30/24 19: Plt Count 456 K/uL (130-400) H 10/30/24 19:27 MPV 9.1 fL (9.4-12.4) L 10/30/24 19: Immature Gran % (Auto) 0.5 % 10/30/24 19:27 Neut % (Auto) 42.2 % 10/30/24 19: Lymph % (Auto) 50.6 % 10/30/24 19:27 [place] % (Auto) 5.6 % 10/30/24 19:27 Eos % (Auto) 0.5 % 10/30/24 19:27 Baso % (Auto) 0.6 % 10/30/24 19: Neut # (Auto) 5.35 K/uL (1.40-6.50) 10/30/24 19: Lymph # (Auto) 6.40 K/uL (1.20-3.40) H 10/30/24 19:27 [place] # (Auto) 0.71 K/uL (0.11-0.59) H 10/30/24 19: Eos # (Auto) 0.06 K/uL (0.00-0.50) 10/30/24 19: Baso # (Auto) 0.08 K/uL (0.00-0.20) 10/30/24 19: Immature Gran # (Auto) 0.06 K/uL (0.01-0.20) 10/30/24 19: Sodium 136 mmol/L (136-145) 10/30/24 19: Potassium 3.6 mmol/L (3.5-5.1) 10/30/24: Chloride 102 mmol/L (98-107) 10/30/24 19: Carbon Dioxide 25 mmol/L (21-32) 10/30/24 19: Anion Gap 9 (3-11) 10/30/24 19: BUN 13 mg/dl (6-23) 10/30/24: Creatinine 0.78 mg/dl (0.6-1.2) 10/30/24 19: Est Cr Clr Drug Dosing 87.2 ml/min 10/30/24 19: eGFR 87.99 10/30/24 19: BUN/Creatinine Ratio 16.7 (10-20) 10/30/24 19: Glucose 133 mg/dl (70-99(Fasting)) H 10/30/24 19: Calcium 10.0 mg/dl (8.6-10.3) 10/30/24: Total Bilirubin 0.4 mg/dl (0.2-1.0) 10/30/24 19: AST 17 U/L (13-39) 10/30/24: ALT 14 U/L (7-52) 10/30/24: Alkaline Phosphatase 59 U/L (34-104) 10/30/24 19: Total Protein 8.0 gm/dl (6.0-8.3) 10/30/24: Albumin 4.0 gm/dl (3.4-5.0) 10/30/24: Globulin 4.0 gm/dl (2.5-4.0) 10/30/24: Albumin/Globulin Ratio 1.0 (0.9-2) 10/30/24: Lipase 82 U/L (11-82) 10/30/24 19: Urine Color Yellow 10/30/24 19: Urine Appearance Cloudy (Clear) A 10/30/24 19: Urine pH 6.0 (4.5-7.5) 10/30/24 19: Ur Specific [place] 1.022 (1.000-1.030) 10/30/24 19: Urine Protein 1+ (Negative) H 10/30/24 19: Urine Glucose (UA) Negative (Negative) 10/30/24: Urine Ketones Negative (Negative) 10/30/24: Urine Blood 3+ (Negative) H 10/30/24 19: Urine Nitrite Negative (Negative) 10/30/24 19: Urine Bilirubin Negative (Negative) 10/30/24: Urine Urobilinogen Negative (Negative) 10/30/24: Ur Leukocyte Esterase 1+ (Negative) H 10/30/24 19:30 Urine WBC (Auto) 11-20 /hpf (0-5) H 10/30/24 19: Urine RBC (Auto) >20 /hpf (0-2) H 10/30/24 19:30 U Hyaline Cast (Auto) 0-2 /lpf (0-2) 10/30/24 19:30 U Epithel Cells (Auto) 11-20 /hpf (0-2) H 10/30/24 19:30 Urine Bacteria (Auto) None Seen (None Seen) 10/30/24 19:30 Impressions Abdomen/Pelvis CT 10/30/24 19:13 Exam(s): CT ABDOMEN + PELVIS Without Contrast EXAM: CT Abdomen and Pelvis Without Intravenous Contrast CLINICAL HISTORY: Reason for exam: r/o kidney stone. TECHNIQUE: Axial computed tomography images of the abdomen and pelvis without intravenous contrast. CTDI is 27.35 mGy and DLP is 1423.95 mGy-cm. Automated exposure control was utilized for the study. A dose lowering technique was utilized adhering to the principles of ALARA. COMPARISON: 03/21/2024 FINDINGS: Lung bases: Unremarkable. No mass. No consolidation. ABDOMEN: Liver: Unremarkable. Gallbladder and bile ducts: Postoperative changes prior cholecystectomy. No ductal dilation. Pancreas: Unremarkable. No ductal dilation. Spleen: Unremarkable. No splenomegaly. Adrenals: Unremarkable. No mass. Kidneys and ureters: Moderate sized right hydronephrosis secondary to a 0.4 cm distal right renal calculus nonobstructing right intrarenal calculi. No left-sided hydronephrosis. No left renal or ureteral calculi. Stomach and bowel: Unremarkable. No obstruction. No mucosal thickening. PELVIS: Appendix: No findings to suggest acute appendicitis. Bladder: Unremarkable. No stones. Reproductive: Uterus are surgically absent. ABDOMEN and PELVIS: Intraperitoneal space: Unremarkable. No free air. No significant fluid collection. Bones/joints: Postoperative changes L4 through [place] 1 interbody fusion. Orthopedic hardware appears intact and well aligned. No acute fracture. Soft tissues: Unremarkable. Vasculature: Unremarkable. No abdominal aortic aneurysm. Lymph nodes: Unremarkable. No enlarged lymph nodes. IMPRESSION: Moderate sized right hydronephrosis secondary to a 0.4 cm distal right ureteral calculus. Electronically signed by: Campos Barrera MD 10/30/24 23:19 PM PG Care Time/CCT Total # of Minutes Spent Total Time Spent with Patient: Total time spent is greater than 50% in coordination of care (as documented) at patient's floor/unit and/or counseling patient: Coding Level of Care Code 18423 INT INP/OBS CARE 3/75MIN Diagnoses Hydronephrosis with obstructing calculus N13.2 Sleep apnea G47.30 Type 2 diabetes mellitus with hyperglycemia, without long-term current use of insulin E11.65 Diabetes mellitus fci insulin use: without intermediate accountant use Diabetes mellitus complication status: with hyperglycemia Dyslipidemia E78.5 (3) Type 2 diabetes mellitus Diabetes mellitus fci insulin use: without fci use Diabetes mellitus complication status: with hyperglycemia Qualified Code(s): E11.65 - Type 2 diabetes mellitus with hyperglycemia
[2024-10-31] MEDS ORDERED: HYDROmorphone INJ 0.5 MG/0.5 ML SYR IV PRN ×2 (01:48)
[2024-10-31] MEDS ORDERED: DOCUSATE SODIUM 100 MG CAP PO PRN (01:48)
[2024-10-31] MEDS ORDERED: ONDANSETRON INJ 2 MG/ML 2 ML VIAL IV PRN (01:48)
[2024-10-31] MEDS ORDERED: ACETAMINOPHEN 325 MG TAB PO PRN (01:48)
[2024-10-31] MEDS: SODIUM CHLORIDE 0.9% 1,000 ML IV SCH (03:02)
[2024-10-31] MEDS: KETOROLAC TROMETHAMINE 15 MG/ML VIAL IV PRN (03:07)
[2024-10-31 08:31] VITALS: BP 119/90
[2024-10-31] MEDS: AMOXICILLIN/CLAVULANATE 875 MG TAB PO SCH (09:08)
[2024-10-31] MEDS: TAMSULOSIN HCL 0.4 MG CAP PO SCH (09:08)
[2024-10-31] MEDS: ROSUVASTATIN CALCIUM 5 MG TAB PO SCH (09:09)
[2024-10-31 11:04] VITALS: RESP 16; TEMP 98.1; O2SAT 100
[2024-10-31 11:47] VITALS: PULSE 60
[2024-10-31] MEDS ORDERED: TOPIRAMATE 25 MG TAB PO SCH (21:00)
--- NOTE | 2024-11-03 14:04 | Discharge Summary ---
Discharge Summary Date of Service October 31, 2024 Principal Dx & Hospital Course #1 = Principal Diagnosis (1) Hydronephrosis with obstructing calculus: 59-year-old female with history of hypertension, hyperlipidemia and prior obstructing renal calculi presenting with right-sided ureteral stone with hydronephrosis. 0.4 cm, distal right ureter. Patient with pain improved with IV Dilaudid in the ER. Nausea has improved as well. No bacteria present on day. Patient has been on Augmentin 875 twice daily since 10/27/2024 for a sinus infection. Admit to medical Keep n.p.o. Strain urine Dilaudid as needed for pain for nausea Toradol as needed for pain Zofran as needed Will continue patient's Augmentin 875 mg p.o. twice daily for treatment of her sinus infection. This was prescribed for a 10-day course and was started on 10/27/2024. Per prior cultures, she has grown pansensitive E. coli in the past which should be covered by this Augmentin and of infectionPlan continue Flomax urology consultation appreciated (2) Sleep apnea: Patient is compliant with her home CPAP. However, over the last several weeks she has had a considerable amount of nasal congestion and has found it difficult to wear her CPAP Supplemental oxygen as needed (3) Type 2 diabetes mellitus: patient is on Ozempic. Diabetes well-controlled. Last hemoglobin A1c in August = 5.5 Daily blood sugar with a.m. labs (4) Dyslipidemia: chronic. Stable. Continue Crestor 5 mg p.o. 4 times weekly Admission HPI Per Admitting Provider Yanna Bustos is a 59yo female with history of MICHELL, DM, HTN and HLP, History of renal stones requiring urologic presenting from home with right flank pain. p atient in usual state of health until this evening around 1730 when she developed right lower quadrant abdominal pain. She had slight discoloration of her urine. Symptoms similar to when she had a renal stone in the past. Patient does have ongoing pain as well as nausea. Denies fever, chills, dysuria, vomiting, chest pain, cough, shortness of breath. Took Flomax at 1815 prior to arrival to the ER. Has not passed any stones. In the ER she is afebrile, hemodynamically stable. Ongoing pain improved with IV Dilaudid ER course: Fentanyl Dilaudid Toradol Zofran Discharge Plan Discharge Items Patient Disposition: Home - Self-Care Reason For Visit: RENAL STONE, HYDRONEPHROSIS Discharge Diagnosis: hydronephrosis Activity: Resume your previous activity Non-emergency contact: Primary Care Provider Call non-emergency contact if: you have any medication questions Follow-up/Referrals: Lexi Irby, [Primary Care Provider] - Diet: Regular Addtl Attending Provider Instructions: Recommend followup with PCP in 1-2 weeks. Pending Studies at Discharge: No Stand-Alone Forms: My [facility] Angry Citizen, Smoking Cessation Medications and DC Order Prescriptions: Continued (DME) lancets [OneTouch Delica Lancets] 33 gauge misc See Rx Instructions .Route Qty: 100 3RF Rx Instructions: Test once daily Ozempic 2 mg/dose (8 mg/3 mL) pen injector 2 mg subcut Q7D Qty: 3 12RF Rx Instructions: Sunday (DME) blood-glucose meter [OneTouch Verio Reflect Meter] Misc See Rx Instructions .Route Qty: 1 0RF Rx Instructions: Check Blood Glucose once daily topiramate 25 mg tablet 25 mg PO HS Qty: 90 3RF (DME) OneTouch Verio test strips Strip See Rx Instructions .Route Qty: 100 3RF Rx Instructions: Check blood glucose once daily (DME) lancets [OneTouch Delica Plus Lancet] 33 gauge misc See Rx Instructions .ROUTE .MEDSUPPLY Qty: 100 3RF Rx Instructions: Check blood sugar once daily rosuvastatin [Crestor] 5 mg tablet 5 mg PO [id number] Rx Instructions: take 1 tablet 4 times per week. MON/SUN/SUN/SAT amoxicillin-pot clavulanate 875-125 mg tablet 1 tab PO BID 10 Days Qty: 20 0RF Discharge Orders: Discharge Order (Routine); Ordered 10/31/24 Ordered By: Almas Walter Admission Data Admit Date/Time: 10/31/24 00:52 Attending Provider: Almas Walter Admit Provider: Ioana Monte Primary Care Provider: Lexi Irby Other Providers: Phill Vidal Other Interventions: Discharge Summary Assessment (RN) Last Done: 10/31/24 11:45 Hospital Stay Data Consultations 10/31/24 00:41 ED Decision to Admit Stat 10/31/24 00:52 Consult Urology Routine Diagnostic Imagining Performed 10/30/24 19:13 CT abd pelvis wo con Stat Pending Results Patient Have Any Pending Studies at Discharge: No Discharge Instructions Given to Patient (Per Discharging Provider) Recommend followup with PCP in 1-2 weeks. 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
== END 2024-10-31 13:48 | disposition home or self-care (01) | DRG 694 ==
LOC: ED 18:57 → SUATTDRO 10-31 00:52 → INTOOBSV 10-31 00:52 → EDINP 10-31 00:52